=== PATIENT | male | born 1975 | race Two or more races ===

== ENCOUNTER 2021-01-02 14:52 | Inpatient (IN) | payer OTHER ==
[~2021-01-02] VITALS: Ht 167.6 cm; Wt 83.5 kg
[2021-01-02] MEDS ORDERED: ZOLOFT100 MG (15:25)
[2021-01-02] MEDS ORDERED: SEROQUEL300 MG (15:25)
[2021-01-02] MEDS ORDERED: CLONAZEPAM0.5 MG (15:25)
[2021-01-02] MEDS ORDERED: HUMALOG100 UNIT/2 (15:25)
[2021-01-02] MEDS ORDERED: PRILOSEC OTC20 MG (15:26)
[2021-01-02] MEDS ORDERED: SYNTHROID50 MCG (15:26)
[2021-01-02] MEDS ORDERED: ALTACE5 MG (15:26)
[2021-01-02] MEDS ORDERED: LAMICTAL200 M1 (15:26)
--- NOTE | 2021-01-02 15:27 | NUR ---
PTE ALERTA Y ORIENTADO POR DA ESFERAS CON BUEN PATRON RESPIRATORIO. REFIERE QUE TIENE DOLOR ABDOMINAL DESDE QUE. SE UBICA EN TOYIN DE OBSERVACION.
--- NOTE | 2021-01-02 16:38 | NUR ---
EVALUA PTE. SE EDUCA A PTE SOBRE [place] MEDICO. PTE REFIERE COMPRENDER. SE COLECTAN MUESTRAS DE LABORATORIO BAJO MEDIDAS ASEPTICAS. SE ADMINISTRAN MEDICAMENTOS DANIELA ORDEN MEDICA. CT REALIZADO.
[2021-01-04] MEDS ORDERED: AMOX1TAB5 PO (12:25)
[2021-01-04] MEDS ORDERED: PEPCID AC20 MG PO (12:25)
[2021-01-04] MEDS ORDERED: PERCOCET 5-3251 EACH PO (12:25)
== END 2021-01-04 13:18 | disposition home or self-care (01) | DRG 343 ==
LOC: ER 14:52 → SEC-K 18:16 → SURH 18:16
PROVIDERS: ADMIT Surgery; ATTEND Surgery
PROC: BW21ZZZ Computerized Tomography (CT Scan) of Abdomen and Pelvis (ICD-10-PCS; 2021-01-02)
PROC: 0DTJ4ZZ Resection of Appendix, Percutaneous Endoscopic Approach (ICD-10-PCS; principal; 2021-01-03 08:30)
DX: K35.891 Other acute appendicitis without perforation, with gangrene (principal); R10.31 Right lower quadrant pain; D72.828 Other elevated white blood cell count; E11.9 Type 2 diabetes mellitus without complications; Z96.41 Presence of insulin pump (external) (internal); Z79.4 Long term (current) use of insulin; Z20.822 Contact with and (suspected) exposure to COVID-19